=== PATIENT | male | born 1960 | race Two or more races ===

== ENCOUNTER 2016-06-04 12:59 | Inpatient (IN) | payer OTHER ==
[2016-06-04 15:02] VITALS: BMI 23.7
--- NOTE | 2016-06-04 16:26 | HP ---
COWS - Scale Resting Pulse: 2= [place] 101-120 Sweatin= Chills/Flushing Restless Observation: 1= Difficult to Sit Still Pupil Size: 0= Normal to Room Light Bone or Joint Aches: 1= Mild Discomfort Runny Nose/ Eye Tearin= Runny Nose/Eyes GI Upset > 30mins: 0= None Tremor Observation: 2= Slight Tremor Visible Yawning Observation: 1= 1-2x During Session Anxiety or Irritability: 1=Feels Anxious/Irritable Goose Flesh Skin: 0=Smooth Skin COWS Score: 11 CIWA Score - CIWA Score Nausea/Vomitin-No Nausea/No Vomiting Muscle Tremors: 3 Anxiety: 3 Agitation: 3 Paroxysmal Sweats: 2 Orientation: 3-Disoriented Date>2 days Tacttile Disturbances: 1-Very Mild Itch/Numbness Auditory Disturbances: 0-None Visual Disturbances: 0-None Headache: 0-None Present CIWA-Ar Total Score: 15 Admission ROS [facility] - HPI Chief Complaint: WITHDRAWAL SX.,PT. IS DROWSY BECAUSE HE TOOK TWO SEROQUEL THIS MORNING. Allergies/Adverse Reactions: Allergies Allergy/AdvReac Type Severity Reaction Status Date / Time fish derived [Fish derived] Allergy Mild Vomiting Verified 08/19/11 17:24 History of Present Illness: PT. WITH A LONG HX. OF HEROIN & ALCOHOL DEPENDENCE IS ADMITTED FOR DETOX. PT. HAS BEEN IN PREVIOUS DETOX, DENIES SIGNIFICANT SOBRIETY & DRUG FREE. Exam Limitations: Other (DROWSY) - Ebola screening Have you traveled outside of the country in the last 21 days: No Have you had contact with anyone from an Ebola affected area: No Have you been sick,other than usual withdrawal symptoms: No Do you have a fever: No - Review of Systems Constitutional: Diaphoresis EENT: reports: Nose Congestion Respiratory: reports: No Symptoms reported Cardiac: reports: No Symptoms Reported GI: reports: No Symptoms Reported : reports: No Symptoms Reported Musculoskeletal: reports: Back Pain, Joint Pain Integumentary: reports: Sweating Neuro: reports: Tingling, Tremors Endocrine: reports: No Symptoms Reported Hematology: reports: No Symptoms Reported Psychiatric: reports: No Sypmtoms Reported Other Systems: Reviewed and Negative Patient History - Patient Medical History Hx Anemia: No Hx Asthma: No Hx Chronic Obstructive Pulmonary Disease (COPD): No Hx Cancer: No Hx Cardiac Disorders: No Hx Congestive Heart Failure: No Hx Hypertension: No Hx Hypercholesterolemia: No Hx Pacemaker: No HX Cerebrovascular Accident: No Hx Seizures: No Hx Dementia: No Hx Diabetes: Yes (? not currently on meds. we'll do BGM) Hx Gastrointestinal Disorders: No Hx Liver Disease: No Hx Genitourinary Disorders: No Hx Sexually Transmitted Disorders: No Hx Renal Disease (ESRD): No Hx Thyroid Disease: No Hx Human Immunodeficiency Virus (HIV): No Hx Hepatitis C: No Hx Depression: Yes (SEROQUEL & DEPAKOTE) Hx Suicide Attempt: No (DENIES) Hx Bipolar Disorder: Yes Hx Schizophrenia: No - Patient Surgical History Past Surgical History: No Hx Neurologic Surgery: No Hx Cataract Extraction: No Hx Cardiac Surgery: No Hx Lung Surgery: No Hx Breast Surgery: No Hx Breast Biopsy: No Hx Abdominal Surgery: No Hx Appendectomy: No Hx Cholecystectomy: No Hx Genitourinary Surgery: No Hx Section: No Hx Orthopedic Surgery: No Anesthesia Reaction: No - PPD History Date: 02/20/16 Results: 0 mm PPD to be Administered?: No - Smoking Cessation Smoking history: Current every day smoker Have you smoked in the past 12 months: Yes Aproximately how many cigarettes per day: 10 Hx Chewing Tobacco Use: No Initiated information on smoking cessation: Yes 'Breaking Loose' booklet given: 06/04/16 - Substance & Tx. History Hx Alcohol Use: Yes Hx Substance Use: Yes Substance Use Type: Alcohol, Heroin Hx Substance Use Treatment: Yes (DETOX) - Substances Abused Alcohol Route: Oral Frequency: Daily Amount used: VODKA 1 PINT,BEER 1-2(6PACK) Age of first use: 14 Date of Last Use: 06/04/16 Heroin Route: Inhalation Frequency: Daily Amount used: 2-3 BAGS Age of first use: 38 Date of Last Use: 06/04/16 Family Disease History - Family Disease History Family History: Denies Admission Physical Exam BHS - Vital Signs Vital Signs: Vital Signs - 24 hr 06/04/16 14:59 Temperature 97 F L Pulse Rate 108 H Respiratory 16 Rate Blood Pressure 108/61 - Physical General Appearance: Yes: Irritable, Sweating, Anxious, Other (DROWSY) HEENTM: Yes: Nasal Congestion, Rhinorrhea Respiratory: Yes: Chest Non-Tender, Lungs Clear, Normal Breath Sounds Neck: Yes: Supple Breast: Yes: Breast Exam Deferred Cardiology: Yes: Regular Rhythm, Regular Rate, S1, S2 Abdominal: Yes: Normal Bowel Sounds, Non Tender, Soft Genitourinary: Yes: Within Normal Limits Back: Yes: Within Normal Limits Musculoskeletal: Yes: Within Normal Limits Extremities: Yes: Tremors Neurological: Yes: Fully Oriented, Alert Integumentary: Yes: Diaphoresis Lymphatic: Yes: Within Normal Limits - Diagnostic (1) Alcohol dependence with uncomplicated withdrawal Current Visit: Yes Status: Acute (2) Nicotine dependence Current Visit: Yes Status: Acute Qualifiers: Nicotine product type: cigarettes Substance use status: uncomplicated Qualified Code(s): F17.210 - Nicotine dependence, cigarettes, uncomplicated (3) Opioid dependence with withdrawal Current Visit: Yes Status: Acute Cleared for Admission [facility] - Detox or Rehab [facility] Level of Care: Medically Managed Detox Regimen/Protocol: Methadone/Librium [facility] Breath Alcohol Content Breath Alcohol Content: 0 Urine Drug Screen - Results Drug Screen Negative: No Urine Drug Screen Results: EUGENIA-Cocaine, OPI-Opiates, BZO-Benzodiazepines
[2016-06-04] MEDS ORDERED: MAGNESIUM HYDROX 2400MG/30ML ORAL SUSPENSION 30 ML CUP PO PRN (16:46)
[2016-06-04] MEDS ORDERED: ACETAMINOPHEN 325 MG TABLET (FP) PO PRN (16:46)
[2016-06-04] MEDS ORDERED: IBUPROFEN 400 MG TABLET (FP) PO PRN (16:46)
[2016-06-04] MEDS ORDERED: diphenhydrAMINE HCL 50 MG CAPSULE PO PRN (16:46)
[2016-06-04] MEDS ORDERED: chlordiazePOXIDE HCL 25 MG CAPSULE PO PRN (16:46)
[2016-06-04] MEDS ORDERED: LOPERAMIDE HCL 2 MG CAPSULE PO PRN (16:46)
[2016-06-04] MEDS ORDERED: MENTHOL/PHENOL 1 EACH UD MM PRN (16:46)
[2016-06-04] MEDS ORDERED: NICOTINE POLACRILEX 2 MG GUM BC PRN (16:46)
[2016-06-04] MEDS ORDERED: MAG HYDROX/AL HYDROX/SIMETH 30 ML UNIT-DOSE CUP PO PRN (16:46)
[2016-06-04] MEDS ORDERED: MAGNESIUM CITRATE 300 ML BOTTLE PO PRN (16:46)
[2016-06-04] MEDS: chlordiazePOXIDE HCL 25 MG CAPSULE PO SCH ×2 (19:25→22:31)
[2016-06-04] MEDS: NICOTINE 21 MG/24 HOURS TOPICAL PATCH TD SCH (19:25)
[2016-06-04] MEDS: THIAMINE HCL 100 MG TABLET (FP) PO SCH (22:29)
[2016-06-04] MEDS ORDERED: METHADONE HCL 10 MG TABLET (FOR DETOX USE ONLY) PO ONE (23:00)
[2016-06-04 23:07] LABS: URINE APPEARANCE CLEAR; URINE BILIRUBIN NEGATIVE (NEGATIVE); URINE BLOOD NEGATIVE (NEGATIVE); URINE COLOR LT. YELLOW; URINE GLUCOSE (UA) NEGATIVE (NEGATIVE); URINE KETONE NEGATIVE (NEGATIVE); URINE LEUK ESTERASE NEGATIVE (NEGATIVE); URINE NITRITE NEGATIVE (NEGATIVE); URINE PROTEIN NEGATIVE (NEGATIVE); URINE UROBILINOGEN 0.2 E.U/dl E.U./dl (0.2-1.0)
[2016-06-05] MEDS: chlordiazePOXIDE HCL 25 MG CAPSULE PO SCH ×4 (05:16→23:22)
[2016-06-05] MEDS: INSULIN (NOVOLOG) ASPART 100 UNITS/ML 10ML VIAL SQ SCH ×2 (07:49→17:08)
--- NOTE | 2016-06-05 08:20 | CONSULT ---
[facility] Psychiatric Consult - Data Date of interview: 06/05/16 Admission source: [facility] Identifying data: This is 55 years old male with unknown past psychiatric hospitalization history , history of Bipolar disorder, intoxicated with: Alcohol, Heroin, Cocaine and Nicotine Substance Abuse History: Smoking history: Current every day smoker. Have you smoked in the past 12 months: Yes. Aproximately how many cigarettes per day: 10. Hx Chewing Tobacco Use: No. Initiated information on smoking cessation: Yes. 'Breaking Loose' booklet given: 06/04/16. - Substance & Tx. History. Hx Alcohol Use: Yes. Hx Substance Use: Yes. Substance Use Type: Alcohol, Heroin. Hx Substance Use Treatment: Yes (DETOX). - Substances Abused. Alcohol. Route: Oral. Frequency: Daily. Amount used: VODKA 1 PINT,BEER 1-2(6PACK). Age of first use: 14. Date of Last Use: 06/04/16. Heroin. Route: Inhalation. Frequency: Daily. Amount used: 2-3 BAGS. Age of first use: 38. Date of Last Use: 06/04/16 Medical History: Denies significant medical issues Psychiatric History: Patient reprots history of Bipolar diosrder, reports unclear past psychiatric hiosputalization history, agrees to restart Depakote 500mg po bid, refueing to restart Seroquel 50mg po qhs, not cooperative dusing evaluation Physical/Sexual Abuse/Trauma History: Denies Additional Comment: Depakote 500mg po bid Mental Status Exam - Mental Status Exam Alert and Oriented to: Person Cognitive Function: Fair Patient Appearance: Unkempt Mood: Anxious Affect: Labile Patient Behavior: Sedated, Impulsive Speech Pattern: Pressured Voice Loudness: Mildly Loud Thought Process: Circumstantial Thought Disorder: Grandiose Hallucinations: Denies Suicidal Ideation: Denies Homicidal Ideation: Denies Insight/Judgement: Impaired Sleep: Difficulty falling asleep Appetite: Weight loss Muscle strength/Tone: Mild Hypertonicity Gait/Station: Shuffling Additional Comments: Depakote 500mg po bid Psychiatric Findings - Problem List ([place] 1, 2,3) (1) Alcohol dependence with uncomplicated withdrawal Current Visit: Yes Status: Acute (2) Nicotine dependence Current Visit: Yes Status: Acute Qualifiers: Nicotine product type: cigarettes Substance use status: uncomplicated Qualified Code(s): F17.210 - Nicotine dependence, cigarettes, uncomplicated (3) Opioid dependence with withdrawal Current Visit: Yes Status: Acute (4) Bipolar disorder Current Visit: No Status: Acute (5) Cocaine dependence, uncomplicated Current Visit: No Status: Acute (6) Substance induced mood disorder Current Visit: No Status: Acute - Initial Treatment Plan Initial Treatment Plan: Depakote 500mg po bid
--- NOTE | 2016-06-05 09:42 | PN ---
S CIWA - CIWA Score Nausea/Vomitin Muscle Tremors: 3 Anxiety: 3 Agitation: 2 Paroxysmal Sweats: 3 Orientation: 0-Oriented Tacttile Disturbances: 1-Very Mild Itch/Numbness Auditory Disturbances: 0-None Visual Disturbances: 0-None Headache: 0-None Present CIWA-Ar Total Score: 14 S COWS - Scale Resting Pulse: 1= [place] 81-100 Restless Observation: 1= Difficult to Sit Still Pupil Size: 1= Pupils >than Normal Bone or Joint Aches: 1= Mild Discomfort Runny Nose/ Eye Tearin= Nasal Congestion GI Upset > 30mins: 1= Stomach Cramp Tremor Observation of Outstretched Hands: 1= Tremor [place], Not Seen Yawning Observation: 0= None Anxiety or Irritability: 2=Irritable/Anxious Goose Flesh Skin: 0=Smooth Skin [facility] Progress Note (SOAP) Subjective: interrupted sleep, sweats, shakes Objective: 06/05/16 09:41 Vital Signs Temperature 97.9 F 06/05/16 05:48 Pulse Rate 68 06/05/16 05:48 Respiratory Rate 18 06/05/16 05:48 Blood Pressure 106/65 06/05/16 05:48 O2 Sat by Pulse Oximetry (%) Laboratory Tests 06/04/16 06/05/16 22:25 05:16 POC Glucometer 109 Urine Color Lt. yellow Urine Appearance Clear Urine pH 6.0 Ur Specific [place] 1.010 Urine Protein Negative Urine Glucose (UA) Negative Urine Ketones Negative Urine Blood Negative Urine Nitrite Negative Urine Bilirubin Negative Urine Urobilinogen 0.2 e.u/dl Ur Leukocyte Esterase Negative pending labs pt aox3 very irritable Assessment: 06/05/16 09:41 withdrawl sx's 06/05/16 14:37 Plan: cont. detox increase fluids ensure bid
[2016-06-05] MEDS ORDERED: METHADONE HCL 10 MG TABLET (FOR DETOX USE ONLY) PO SCH (10:00)
[2016-06-05 10:17] LABS: MCH 33.5 pg (25.7-33.7); MCHC 33.6 g/dl (32.0-35.9); MEAN PLT VOLUME 8.1 fl (7.5-11.1); PLATELET COUNT 250 K/MM3 (134-434); RDW 13.3 % (11.9-15.9); WHITE BLOOD COUNT 8.8 K/mm3 (4.0-10.0)
[2016-06-05 10:45] LABS: ALBUMIN 3.3 g/dl (3.4-5.0); ALK PHOS 61 U/L (45-117); ANION GAP 7 (8-16); BILIRUBIN,TOTAL 0.3 mg/dL (0.2-1.0); CALCIUM 9.1 mg/dL (8.5-10.1); CO2 28 mmol/L (21-32); CREATININE 0.9 mg/dL (0.7-1.3); GLUCOSE,RANDOM 120 mg/dL (74-106); SGOT/AST 44 U/L (15-37); SGPT/ALT 50 U/L (12-78)
[2016-06-05] MEDS: PRENATAL VITAMINS W/ FOLIC ACID TABLET (FP) PO SCH (10:53)
[2016-06-05] MEDS: guaiFENesin/D-METHORPHAN HB 10 ML UNIT-DOSE CUPS PO PRN (10:54)
[2016-06-05] MEDS: P-EPHED 60MG/TRIPROLIDI 2.5MG TABLET PO PRN (10:54)
[2016-06-05] MEDS: DIVALPROEX SODIUM 500 MG TABLET E.C. PO SCH ×2 (10:54→22:55)
[2016-06-05] MEDS: NICOTINE 21 MG/24 HOURS TOPICAL PATCH TD SCH (11:26)
--- NOTE | 2016-06-05 16:33 | EKG ---
Test Reason : Blood Pressure : / mmHG Vent. Rate : 083 BPM Atrial Rate : 083 BPM P-R Int : 144 ms QRS Dur : 112 ms QT Int : 366 ms P-R-T Axes : 069 074 071 degrees QTc Int : 430 ms POOR DATA QUALITY, INTERPRETATION MAY BE ADVERSELY AFFECTED NORMAL SINUS RHYTHM NONSPECIFIC ST ABNORMALITY ABNORMAL ECG NO PREVIOUS ECGS AVAILABLE Confirmed by ROMAN FLORENCE MD ([id number]) on 06/05/2016 4:33:08 PM Referred By: Confirmed By:ROMAN FLORENCE MD
[2016-06-05] MEDS: THIAMINE HCL 100 MG TABLET (FP) PO SCH (22:55)
[2016-06-06] MEDS: chlordiazePOXIDE HCL 25 MG CAPSULE PO SCH ×2 (05:19→10:10)
[2016-06-06] MEDS: INSULIN (NOVOLOG) ASPART 100 UNITS/ML 10ML VIAL SQ SCH ×2 (07:33→17:20)
--- NOTE | 2016-06-06 09:18 | PN ---
S CIWA - CIWA Score Nausea/Vomitin Muscle Tremors: 3 Anxiety: 3 Agitation: 2 Paroxysmal Sweats: 1-Minimal Palms Moist Orientation: 0-Oriented Tacttile Disturbances: 1-Very Mild Itch/Numbness Auditory Disturbances: 1-Very Mild Visual Disturbances: 1-Very Mild Sensitivity Headache: 2-Mild CIWA-Ar Total Score: 17 BHS COWS - Scale Resting Pulse: 0= DC 80 or Below Sweatin= Chills/Flushing Restless Observation: 3= Extraneous Movement Pupil Size: 1= Pupils >than Normal Bone or Joint Aches: 2= Severe Diffuse Aches Runny Nose/ Eye Tearin= Runny Nose/Eyes GI Upset > 30mins: 2= Nausea/Diarrhea Tremor Observation of Outstretched Hands: 2= Slight Tremor Visible Yawning Observation: 2= >3x During Session Anxiety or Irritability: 2=Irritable/Anxious Goose Flesh Skin: 0=Smooth Skin COWS Score: 17 S Progress Note (SOAP) Subjective: ALERT,IRRITABLE,ANXIOUS,INTERRUPTED SLEEP,TREMOR,PAIN IN THE BODY AND BACK Objective: 06/06/16 09:15 Vital Signs Temperature 98.1 F 06/06/16 06:16 Pulse Rate 63 06/06/16 06:16 Respiratory Rate 14 06/06/16 06:16 Blood Pressure 98/64 06/06/16 06:16 O2 Sat by Pulse Oximetry (%) Laboratory Last Values WBC 8.8 K/mm3 (4.0-10.0) 06/05/16 06:30 RBC 4.14 M/mm3 (4.00-5.60) 06/05/16 06:30 Hgb 13.9 GM/dL (11.7-16.9) 06/05/16 06:30 Hct 41.4 % (35.4-49) 06/05/16 06:30 MCV 100.0 fl (80-96) H 06/05/16 06:30 MCHC 33.6 g/dl (32.0-35.9) 06/05/16 06:30 RDW 13.3 % (11.9-15.9) 06/05/16 06:30 Plt Count 250 K/MM3 (134-434) 06/05/16 06:30 MPV 8.1 fl (7.5-11.1) 06/05/16 06:30 Sodium 143 mmol/L (136-145) 06/05/16 06:30 Potassium 3.6 mmol/L (3.5-5.1) 06/05/16 06:30 Chloride 108 mmol/L (98-107) H 06/05/16 06:30 Carbon Dioxide 28 mmol/L (21-32) 06/05/16 06:30 Anion Gap 7 (8-16) L 06/05/16 06:30 BUN 18 mg/dL (7-18) D 06/05/16 06:30 Creatinine 0.9 mg/dL (0.7-1.3) 06/05/16 06:30 Creat Clearance w eGFR > 60 (>60) 06/05/16 06:30 POC Glucometer 109 UNITS (()) 06/05/16 05:16 Random Glucose 120 mg/dL (74-106) H 06/05/16 06:30 Calcium 9.1 mg/dL (8.5-10.1) 06/05/16 06:30 Total Bilirubin 0.3 mg/dL (0.2-1.0) D 06/05/16 06:30 AST 44 U/L (15-37) H 06/05/16 06:30 ALT 50 U/L (12-78) D 06/05/16 06:30 Alkaline Phosphatase 61 U/L (45-117) 06/05/16 06:30 Total Protein 7.0 g/dl (6.4-8.2) 06/05/16 06:30 Albumin 3.3 g/dl (3.4-5.0) L 06/05/16 06:30 Urine Color Lt. yellow 06/04/16 22:25 Urine Appearance Clear 06/04/16 22:25 Urine pH 6.0 (5.0-8.0) 06/04/16 22:25 Ur Specific [place] 1.010 (1.001-1.035) 06/04/16 22:25 Urine Protein Negative (NEGATIVE) 06/04/16 22:25 Urine Glucose (UA) Negative (NEGATIVE) 06/04/16 22:25 Urine Ketones Negative (NEGATIVE) 06/04/16 22:25 Urine Blood Negative (NEGATIVE) 06/04/16 22:25 Urine Nitrite Negative (NEGATIVE) 01/11/17 22:25 Urine Bilirubin Negative (NEGATIVE) 06/04/16 22:25 Urine Urobilinogen 0.2 e.u/dl E.U./dl (0.2-1.0) 06/04/16 22:25 Ur Leukocyte Esterase Negative (NEGATIVE) 06/04/16 22:25 RPR Titer Nonreactive (NONREACTIVE) 06/05/16 06:30 Assessment: 06/06/16 09:17 WITHDRAWAL SYMPTOM Plan: CONTINUE DETOX,BGM IS 120,BGM MONITORING,REPEAT CMP IN AM
[2016-06-06] MEDS: DIVALPROEX SODIUM 500 MG TABLET E.C. PO SCH ×2 (10:10→22:13)
[2016-06-06] MEDS: PRENATAL VITAMINS W/ FOLIC ACID TABLET (FP) PO SCH (10:10)
[2016-06-06] MEDS: METHADONE HCL 5 MG TABLET (FOR DETOX USE ONLY) PO SCH (10:10)
[2016-06-06] MEDS: P-EPHED 60MG/TRIPROLIDI 2.5MG TABLET PO PRN (10:11)
[2016-06-06] MEDS: guaiFENesin/D-METHORPHAN HB 10 ML UNIT-DOSE CUPS PO PRN (10:11)
[2016-06-06] MEDS: NICOTINE 21 MG/24 HOURS TOPICAL PATCH TD SCH (10:11)
[2016-06-06] MEDS: chlordiazePOXIDE 5 MG CAPSULE PO SCH ×2 (17:36→22:13)
[2016-06-06] MEDS: THIAMINE HCL 100 MG TABLET (FP) PO SCH (22:13)
[2016-06-07] MEDS: chlordiazePOXIDE 5 MG CAPSULE PO SCH ×2 (06:51→11:28)
[2016-06-07] MEDS: INSULIN (NOVOLOG) ASPART 100 UNITS/ML 10ML VIAL SQ SCH ×2 (07:46→16:43)
[2016-06-07] MEDS: PRENATAL VITAMINS W/ FOLIC ACID TABLET (FP) PO SCH (11:27)
[2016-06-07] MEDS: METHADONE HCL 5 MG TABLET (FOR DETOX USE ONLY) PO SCH (11:28)
[2016-06-07] MEDS: DIVALPROEX SODIUM 500 MG TABLET E.C. PO SCH ×2 (11:28→22:28)
[2016-06-07] MEDS: NICOTINE 21 MG/24 HOURS TOPICAL PATCH TD SCH (11:31)
--- NOTE | 2016-06-07 12:16 | PN ---
S Progress Note (SOAP) Subjective: ALERT,IRRITABLE,ANXIOUS,INTERRUPTED SLEEP,PAIN IN THE BODY Objective: 06/07/16 12:15 Vital Signs Temperature 97.3 F L 06/07/16 10:00 Pulse Rate 66 06/07/16 10:00 Respiratory Rate 16 06/07/16 10:00 Blood Pressure 131/77 06/07/16 10:00 O2 Sat by Pulse Oximetry (%) 06/07/16 12:15 Assessment: 06/07/16 12:15 WITHDRAWAL SYMPTOM Plan: CONTINUE DETOX,PATIENT REFUSED REPEAT CMP AND BGM,INITIAL GLUCOSE IS 120
[2016-06-07] MEDS: chlordiazePOXIDE HCL 10 MG CAPSULE PO SCH ×2 (18:30→22:29)
[2016-06-07] MEDS: THIAMINE HCL 100 MG TABLET (FP) PO SCH (22:28)
[2016-06-08] MEDS: INSULIN (NOVOLOG) ASPART 100 UNITS/ML 10ML VIAL SQ SCH (05:59)
[2016-06-08] MEDS: chlordiazePOXIDE HCL 10 MG CAPSULE PO SCH (05:59)
[2016-06-08] MEDS ORDERED: METHADONE HCL 10 MG TABLET (FOR DETOX USE ONLY) PO SCH (10:00)
--- NOTE | 2016-06-08 12:09 | PN ---
S Progress Note (SOAP) Subjective: ALERT,IRRITABLE,ANXIOUS,INTERRUPTED SLEEP Objective: 06/08/16 12:08 Vital Signs Temperature 97.3 F L 06/08/16 10:00 Pulse Rate 77 06/08/16 10:00 Respiratory Rate 18 06/08/16 10:00 Blood Pressure 84/62 06/08/16 10:00 O2 Sat by Pulse Oximetry (%) Assessment: 06/08/16 12:08 WITHDRAWAL SYMPTOM Plan: CONTINUE DETOX
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
--- NOTE | 2016-06-08 13:35 | PN ---
[facility] Progress Note Note: PATIENT WOULD LIKE TO BE DISCHARGED,STABLE FOR DISCHARGE TODAY,FOLLOW UP WITH AFTER CARE PROGRAM ARRANGEMENT
--- NOTE | 2016-06-08 13:38 | DS ---
[facility] Detox Discharge Summary Admission Date: 06/04/16 Discharge Date: 06/08/16 - History Present History: Alcohol Dependence, Opioid Dependence Additional Comments: FOLLOW UP WITH AFTER PROGRAM ARRANGEMENT Pertinent Past History: BIPOLAR DISORDER - Physical Exam Results Vital Signs: Vital Signs Temperature 97.3 F L 06/08/16 10:00 Pulse Rate 77 06/08/16 10:00 Respiratory Rate 18 06/08/16 10:00 Blood Pressure 84/62 06/08/16 10:00 O2 Sat by Pulse Oximetry (%) Pertinent Admission Physical Exam Findings: WITHDRAWAL SYMPTOM - Treatment Hospital Course: Detox Protocol Followed, Detoxed Safely, Responded well, Discharged Condition Good Patient has Accepted a Rehab Referral to: [facility]CL[facility]ED - Medication Discharge Medications: Ambulatory Orders Divalproex [Depakote -] 500 mg PO BID 06/04/16 Quetiapine Fumarate [Seroquel -] 50 mg PO HS 06/04/16 Divalproex [Depakote -] 500 mg PO BID #60 tablet.ec 06/05/16 - AMA Did Patient Leave Against Medical Advice: No
[2016-06-08 14:29] VITALS: BP 115/57; PULSE 69; TEMP 97.7
[2016-06-09] MEDS ORDERED: METHADONE HCL 5 MG TABLET (FOR DETOX USE ONLY) PO SCH (06:00)
== END 2016-06-08 13:50 | disposition home or self-care (01) | DRG 773 ==
LOC: YASAS 12:59 → Y6N 18:12
PROVIDERS: ADMIT Internal Medicine Addiction Medicine; ATTEND Internal Medicine Addiction Medicine
PROC: HZ2ZZZZ Detoxification Services for Substance Abuse Treatment (ICD-10-PCS; principal; 2016-06-04)
DX: F11.23 Opioid dependence with withdrawal (principal); F10.230 Alcohol dependence with withdrawal, uncomplicated; F14.20 Cocaine dependence, uncomplicated; F17.210 Nicotine dependence, cigarettes, uncomplicated; F31.9 Bipolar disorder, unspecified; F19.24 Other psychoactive substance dependence with psychoactive substance-induced mood disorder; E11.9 Type 2 diabetes mellitus without complications
CPT/HCPCS: 36415; 80053; 80164; 81003; 85027; 86593; 93005; 93010

== ENCOUNTER 2017-10-28 09:52 | Inpatient (IN) | payer OTHER ==
[2017-10-28 11:10] VITALS: BMI 23.4
--- NOTE | 2017-10-28 14:23 | HP ---
Admission ROS [facility] - [facility] Chief Complaint: i need help to stop using heroin and alcohol Allergies/Adverse Reactions: Allergies Allergy/AdvReac Type Severity Reaction Status Date / Time No Known Drug Allergies Allergy Verified 10/28/17 12:23 fish derived [Fish derived] AdvReac Mild Vomiting Verified 10/28/17 12:23 History of Present Illness: this 57 years old male with heroin and alcohol dependence,seeking rehab,last treatment [facility] discharged on 10/26/17 hepatitis c treated nicotine dependence anxiety,depression,insomnia longest period of sobriety 5 years Exam Limitations: No Limitations - Ebola screening Have you traveled outside of the country in the last 21 days: No Have you had contact with anyone from an Ebola affected area: No Have you been sick,other than usual withdrawal symptoms: No Do you have a fever: No - Review of Systems Constitutional: No Symptoms Reported EENT: reports: No Symptoms Reported Respiratory: reports: No Symptoms reported Cardiac: reports: No Symptoms Reported GI: reports: No Symptoms Reported : reports: No Symptoms Reported Musculoskeletal: reports: No Symptoms Reported Integumentary: reports: No Symptoms Reported Neuro: reports: No Symptoms reported Endocrine: reports: No Symptoms Reported Hematology: reports: No Symptoms Reported Psychiatric: reports: No Sypmtoms Reported, Judgement Intact, Mood/Affect Appropiate, Orientated x3 (insomnia), Anxious, Depressed Patient History - Patient Medical History Hx Anemia: No Hx Asthma: No Hx Chronic Obstructive Pulmonary Disease (COPD): No Hx Cancer: No Hx Cardiac Disorders: No Hx Congestive Heart Failure: No Hx Hypertension: No Hx Hypercholesterolemia: No Hx Pacemaker: No HX Cerebrovascular Accident: No Hx Seizures: No Hx Dementia: No Hx Diabetes: No Hx Gastrointestinal Disorders: No Hx Liver Disease: No Hx Genitourinary Disorders: No Hx Sexually Transmitted Disorders: No Hx Renal Disease (ESRD): No Hx Thyroid Disease: No Hx Human Immunodeficiency Virus (HIV): No (last 2017 negative) Hx Hepatitis C: Yes (treated) Hx Depression: Yes (SEROQUEL & DEPAKOTE) Hx Suicide Attempt: No (DENIES) Hx Bipolar Disorder: Yes Hx Schizophrenia: No Other Medical History: no sucidal,no homicidal - Patient Surgical History Past Surgical History: No Hx Neurologic Surgery: No Hx Cataract Extraction: No Hx Cardiac Surgery: No Hx Lung Surgery: No Hx Breast Surgery: No Hx Breast Biopsy: No Hx Abdominal Surgery: No Hx Appendectomy: No Hx Cholecystectomy: No Hx Genitourinary Surgery: No Hx Section: No Hx Orthopedic Surgery: No Anesthesia Reaction: No - PPD History Previous Implant?: Yes Documented Results: Negative w/o proof Implanted On Prior [facility] Admission?: Yes Date: 02/20/16 Results: 0 mm PPD to be Administered?: Yes - Smoking Cessation Smoking history: Current every day smoker Have you smoked in the past 12 months: Yes Aproximately how many cigarettes per day: 10 Hx Chewing Tobacco Use: No Initiated information on smoking cessation: Yes 'Breaking Loose' booklet given: 10/28/17 - Substance & Tx. History Hx Alcohol Use: Yes Hx Substance Use: Yes Substance Use Type: Alcohol, Cocaine, Heroin Hx Substance [facility] - Substances Abused Heroin Route: Inhalation Frequency: Daily Amount used: 1 bag Age of first use: 50 Date of Last Use: 10/27/17 Alcohol Route: Oral Frequency: 3-6 times per week Amount used: 3-4 beers Age of first use: 14 Date of Last Use: 10/28/17 Cocaine Route: Inhalation Frequency: 1-2 times per week Amount used: $20 Age of first use: 24 Date of Last Use: 10/27/17 Family Disease History - Family Disease History Family History: Denies Admission Physical Exam S - Vital Signs Vital Signs: Vital Signs - 24 hr 10/28/17 11:08 Temperature 97.8 F Pulse Rate 74 Respiratory 18 Rate Blood Pressure 130/79 - Physical General Appearance: Yes: Within Normal Limits HEENTM: Yes: Normal ENT Inspection, Normocephalic, [place] Respiratory: Yes: Lungs Clear, Normal Breath Sounds, No Respiratory Distress Neck: Yes: Within Normal Limits Breast: Yes: Within Normal Limits Cardiology: Yes: Within Normal Limits, Regular Rhythm, Regular Rate, S1, S2 Abdominal: Yes: Within Normal Limits, Normal Bowel Sounds, Non Tender, Soft Genitourinary: Yes: Within Normal Limits Back: Yes: Within Normal Limits Musculoskeletal: Yes: Within Normal Limits, Muscle Pain Extremities: Yes: Within Normal Limits Neurological: Yes: volunteer recruiter II-XII NML intact, Fully Oriented, Alert, Motor Strength 5/5 Integumentary: Yes: Within Normal Limits Lymphatic: Yes: Within Normal Limits - Diagnostic (1) Opioid dependence Current Visit: Yes Status: Acute (2) Cocaine dependence Current Visit: Yes Status: Acute (3) Cocaine dependence, uncomplicated Current Visit: No Status: Acute (4) Alcohol dependence Current Visit: Yes Status: Acute (5) Nicotine dependence Current Visit: Yes Status: Acute (6) Nicotine dependence Current Visit: No Status: Acute Qualifiers: Nicotine product type: cigarettes Substance use status: uncomplicated Qualified Code(s): F17.210 - Nicotine dependence, cigarettes, uncomplicated (7) Hepatitis C Current Visit: Yes Status: Acute (8) Bipolar disorder Current Visit: No Status: Acute Cleared for Admission [facility] - Detox or Rehab Claeared for Rehab Admission: Yes [facility] Breath Alcohol Content Breath Alcohol Content: 0 Urine Drug Screen - Results Drug Screen Negative: No Urine Drug Screen Results: EUGENIA-Cocaine, OPI-Opiates, BZO-Benzodiazepines, MTD- Methadone Inpatient Rehab Admission - Initial Determination Are CD services needed?: Yes Free of communicable disease: Yes Not in need of hospitalization: Yes - Rehab Admission Criteria Previous failed treatment: Yes Poor recovery environment: Yes Comorbidities: Yes Lacks judgement: No Patient is meeting Inpatient Rehab admission criteria:: Yes
[2017-10-28] MEDS ORDERED: MENTHOL/PHENOL 1 EACH UD MM PRN (14:38)
[2017-10-28] MEDS ORDERED: MAGNESIUM CITRATE 300 ML BOTTLE PO PRN (14:38)
[2017-10-28] MEDS ORDERED: MAGNESIUM HYDROX 2400MG/30ML ORAL SUSPENSION 30 ML CUP PO PRN (14:38)
[2017-10-28] MEDS ORDERED: guaiFENesin/D-METHORPHAN HB 10 ML UNIT-DOSE CUPS PO PRN (14:38)
[2017-10-28] MEDS ORDERED: LOPERAMIDE HCL 2 MG CAPSULE PO PRN (14:38)
[2017-10-28] MEDS ORDERED: IBUPROFEN 400 MG TABLET (FP) PO PRN (14:38)
[2017-10-28] MEDS ORDERED: MAG HYDROX/AL HYDROX/SIMETH 30 ML UNIT-DOSE CUP PO PRN (14:38)
[2017-10-28] MEDS ORDERED: ACETAMINOPHEN 325 MG TABLET (FP) PO PRN (14:38)
[2017-10-28] MEDS ORDERED: P-EPHED 60MG/TRIPROLIDI 2.5MG TABLET PO PRN (14:38)
[2017-10-28] MEDS ORDERED: hydrOXYzine PAMOATE 50 MG CAPSULE (FP) PO PRN (14:47)
[2017-10-28] MEDS ORDERED: NICOTINE POLACRILEX 2 MG GUM BUC PRN (14:47)
[2017-10-28 17:12] LABS: ALK PHOS 81 U/L (45-117); ANION GAP 2 (8-16); BILIRUBIN,TOTAL 0.4 mg/dL (0.2-1.0); BLOOD UREA NITROGEN 9 mg/dL (7-18); CALCIUM 8.9 mg/dL (8.5-10.1); CHLORIDE 98 mmol/L (98-107); CO2 35 mmol/L (21-32); CREATININE 0.8 mg/dL (0.7-1.3); GLUCOSE,RANDOM 92 mg/dL (74-106); POTASSIUM 4.4 mmol/L (3.5-5.1); SGOT/AST 22 U/L (15-37); SGPT/ALT 25 U/L (12-78); SODIUM 135 mmol/L (136-145); TOT PROT 7.6 g/dl (6.4-8.2)
[2017-10-28 17:24] LABS: HEMOGLOBIN 14.6 GM/dL (11.7-16.9); MCH 32.3 pg (25.7-33.7); MEAN CELL VOLUME 95.1 fl (80-96); MEAN PLT VOLUME 8.3 fl (7.5-11.1); PLATELET COUNT 310 K/MM3 (134-434); RBC 4.53 M/mm3 (4.00-5.60); WHITE BLOOD COUNT 7.7 K/mm3 (4.0-10.0)
[2017-10-28] MEDS: NICOTINE 21 MG/24 HOURS TOPICAL PATCH TD SCH (19:36)
[2017-10-28] MEDS ORDERED: TUBERCULIN PPD 5 TU/0.1ML VIAL ID ONE (19:37)
[2017-10-28] MEDS: THIAMINE HCL 100 MG TABLET (FP) PO SCH (21:31)
[2017-10-28] MEDS ORDERED: MELATONIN 5 MG TABLETS PO PRN (22:00)
[2017-10-29 07:05] LABS: URINE APPEARANCE CLEAR; URINE BILIRUBIN NEGATIVE (<2.0 mg/dL); URINE BLOOD NEGATIVE (NEGATIVE); URINE COLOR LTYELLOW; URINE GLUCOSE (UA) NEGATIVE (NEGATIVE); URINE KETONE NEGATIVE (NEGATIVE); URINE LEUK ESTERASE NEGATIVE (NEGATIVE); URINE NITRITE NEGATIVE (NEGATIVE); URINE PROTEIN NEGATIVE (NEGATIVE); URINE UROBILINOGEN NEGATIVE mg/dL (0.2-1.0)
--- NOTE | 2017-10-29 10:37 | HP ---
Psychiatrist Admission - Data Date of interview: 10/29/17 Admission source: friend Identifying data: This is the second [facility] admission for this 57 years old single male, unemployed on SSI, homeless Medical History: Significant for history of treatment for hepatitis C. smoked 10 cigarettes daily Psychiatric History: Patient was very irritable and evasive during the interview. He reports that years ago welfare referred him for a psychiatric evaluation because he could not hold a job. Claims that he saw 4 psychiatrists and they all diagnosed him with Bipolar. Reports one previous psychiatric admission to [facility]. He could not provide details surrounding that admission in term of date, medication etc. Claims following discharge, he attended psychiatric OPD care for a while but has no recollection of the site. He told Dr Hernandez during an admission to this facility in January 2016 that he once [facility] [place]. Currently he denies receiving psychiatric OPD care or taking any psychotropic medication.. Told show card writer that Depakote is one of the mecication he remembers being on in the past. Denies previous suicidal attempt. At present, reports feeling irritable and sleeping poorly. Physical/Sexual Abuse/Trauma History: Denies Additional Comment: Reports history of 3 previous arrests including 2 felony convictions. denies parole.probation Vital Signs: Vital Signs - 24 hr 10/28/17 10/28/17 10/29/17 11:08 18:30 00:30 Temperature 97.8 F 98.8 F Pulse Rate 74 85 Respiratory 18 18 18 Rate Blood Pressure 130/79 123/75 10/29/17 10/29/17 03:30 07:20 Temperature 98.7 F Pulse Rate 65 Respiratory 18 18 Rate Blood Pressure 131/86 Allergies/Adverse Reactions: Allergies Allergy/AdvReac Type Severity Reaction Status Date / Time No Known Drug Allergies Allergy Verified 10/28/17 12:23 fish derived [Fish derived] AdvReac Mild Vomiting Verified 10/28/17 12:23 Date of last physical exam: 10/28/17 Concur with the findings of this exam: Yes - Substance Abuse/Tx History Hx Alcohol Use: Yes Hx Substance Use: Yes Substance Use Type: Alcohol (Started drinking alcohol at age 14, consumes 3-4x oz daily. Last drank on 10/28/17), Heroin (Started using heroin at age 50, consumes one bag daily. Last used on 10/27/17) Hx Substance Use Treatment: Yes (4 previous inpt detox &one inpt rehab @ [facility]) Mental Status Exam - Mental Status Exam Alert and Oriented to: Time, Place, Person Cognitive Function: Fair Patient Appearance: Well Groomed Mood: Irritable Speech Pattern: Clear Voice Loudness: Normal Thought Process: Intact, Goal Oriented Thought Disorder: Not Present Hallucinations: Denies Suicidal Ideation: Denies Homicidal Ideation: Denies Insight/Judgement: Fair Sleep: Poorly Appetite: Poor Muscle strength/Tone: Normal Gait/Station: Normal Psychiatric Findings - Problem List ([place] 1, 2,3) (1) Alcohol dependence Current Visit: Yes Status: Acute (2) Cocaine dependence Current Visit: Yes Status: Acute (3) Nicotine dependence Current Visit: Yes Status: Acute (4) Substance induced mood disorder Current Visit: Yes Status: Acute (5) Bipolar disorder Current Visit: Yes Status: Ruled-out (6) Substance-induced sleep disorder Current Visit: Yes Status: Acute (7) Hepatitis C Current Visit: Yes Status: Resolved - Initial Treatment Plan Initial Treatment Plan: 1) Start Belsomra 10 mg po HS prn for insomnia. 2) Monitor progress
[2017-10-29] MEDS: PRENATAL VITAMINS W/ FOLIC ACID TABLET (FP) PO SCH (11:07)
[2017-10-29] MEDS: NICOTINE 21 MG/24 HOURS TOPICAL PATCH TD SCH (11:07)
--- NOTE | 2017-10-29 11:42 | EKG ---
Test Reason : Blood Pressure : / mmHG Vent. Rate : 064 BPM Atrial Rate : 064 BPM P-R Int : 140 ms QRS Dur : 086 ms QT Int : 426 ms P-R-T Axes : 076 077 063 degrees QTc Int : 439 ms NORMAL SINUS RHYTHM NORMAL ECG WHEN COMPARED WITH ECG OF 04-JUN-2016 18:54, NO SIGNIFICANT CHANGE WAS FOUND Confirmed by ROMAN FLORENCE MD ([id number]) on 10/29/2017 11:42:30 AM Referred By: Confirmed By:ROMAN FLORENCE MD
--- NOTE | 2017-10-29 13:13 | PN ---
[facility] Progress Note Note: Patient c/o of not feeling and mild withdrawal symptoms, body aches and chills. Patient requested to stay in bed and rest. He reports he feels this way because he ledthis detox at [facility] two days prior completion. Vital Signs Temperature 98.7 F 10/29/17 07:20 Pulse Rate 65 10/29/17 07:20 Respiratory Rate 18 10/29/17 07:20 Blood Pressure 131/86 10/29/17 07:20 O2 Sat by Pulse Oximetry (%) Laboratory Last Values WBC 7.7 K/mm3 (4.0-10.0) 10/28/17 15:30 RBC 4.53 M/mm3 (4.00-5.60) 10/28/17 15:30 Hgb 14.6 GM/dL (11.7-16.9) 10/28/17 15:30 Hct 43.0 % (35.4-49) 10/28/17 15:30 MCV 95.1 fl (80-96) 10/28/17 15:30 MCH 32.3 pg (25.7-33.7) 10/28/17 15:30 MCHC 34.0 g/dl (32.0-35.9) 10/28/17 15:30 RDW 13.0 % (11.9-15.9) 10/28/17 15:30 Plt Count 310 K/MM3 (134-434) D 10/28/17 15:30 MPV 8.3 fl (7.5-11.1) 10/28/17 15:30 Sodium 135 mmol/L (136-145) L 10/28/17 15:30 Potassium 4.4 mmol/L (3.5-5.1) D 10/28/17 15:30 Chloride 98 mmol/L (98-107) 10/28/17 15:30 Carbon Dioxide 35 mmol/L (21-32) H D 10/28/17 15:30 Anion Gap 2 (8-16) L 10/28/17 15:30 BUN 9 mg/dL (7-18) D 10/28/17 15:30 Creatinine 0.8 mg/dL (0.7-1.3) 10/28/17 15:30 Creat Clearance w eGFR > 60 (>60) 06/06/18 15:30 Random Glucose 92 mg/dL (74-106) D 10/28/17 15:30 Calcium 8.9 mg/dL (8.5-10.1) 10/28/17 15:30 Total Bilirubin 0.4 mg/dL (0.2-1.0) D 10/28/17 15:30 AST 22 U/L (15-37) D 10/28/17 15:30 ALT 25 U/L (12-78) D 10/28/17 15:30 Alkaline Phosphatase 81 U/L (45-117) D 10/28/17 15:30 Total Protein 7.6 g/dl (6.4-8.2) 10/28/17 15:30 Albumin 4.0 g/dl (3.4-5.0) D 10/28/17 15:30 Urine Color Ltyellow 10/28/17 22:00 Urine Appearance Clear 10/28/17 22:00 Urine pH 6.0 (5.0-8.0) 10/28/17 22:00 Ur Specific [place] 1.005 (1.001-1.035) 10/28/17 22:00 Urine Protein Negative (NEGATIVE) 10/28/17 22:00 Urine Glucose (UA) Negative (NEGATIVE) 10/28/17 22:00 Urine Ketones Negative (NEGATIVE) 10/28/17 22:00 Urine Blood Negative (NEGATIVE) 10/28/17 22:00 Urine Nitrite Negative (NEGATIVE) 10/28/17 22:00 Urine Bilirubin Negative (<2.0 mg/dL) 10/28/17 22:00 Urine Urobilinogen Negative mg/dL (0.2-1.0) 10/28/17 22:00 Ur Leukocyte Esterase Negative (NEGATIVE) 10/28/17 22:00 RPR Titer Nonreactive (NONREACTIVE) 10/28/17 15:30 A/P AOX3 no distress no adventitious breath sounds skin intact, full ROM v/s stable - withdrawal sx Plan: increase fluids rest monitor for worsening symptoms
[2017-10-29] MEDS: THIAMINE HCL 100 MG TABLET (FP) PO SCH (21:33)
[2017-10-29] MEDS ORDERED: SUVOREXANT 10 MG TABLET PO PRN (22:00)
[2017-10-30] MEDS ORDERED: ACETAMINOPHEN 325 MG TABLET (FP) PO PRN (07:04)
[2017-10-30 07:05] VITALS: BP 136/96; PULSE 62; TEMP 97.6
--- NOTE | 2017-10-30 10:30 | PN ---
S Progress Note Note: Psychiatric nurse practitioner note: Sweet Potato Disintegrator informed by RN that patient was irritable this morning. Pt. refusing to speak to staff, psychiatrist, and counselor. Pt. walked off unit and left AMA.
[2017-10-30] MEDS: PRENATAL VITAMINS W/ FOLIC ACID TABLET (FP) PO SCH (11:37)
[2017-10-30] MEDS: NICOTINE 21 MG/24 HOURS TOPICAL PATCH TD SCH (11:37)
== END 2017-10-30 10:30 | disposition left against medical advice (07) | DRG 770 ==
LOC: YASAS 09:52 → Y5N 15:03
PROVIDERS: ADMIT Psychiatry & Neurology Psychiatry; ATTEND Psychiatry & Neurology Psychiatry
PROC: HZ42ZZZ Group Counseling for Substance Abuse Treatment, Cognitive-Behavioral (ICD-10-PCS; principal; 2017-10-28)
DX: F11.23 Opioid dependence with withdrawal (principal); F10.230 Alcohol dependence with withdrawal, uncomplicated; F14.20 Cocaine dependence, uncomplicated; F17.210 Nicotine dependence, cigarettes, uncomplicated; F19.24 Other psychoactive substance dependence with psychoactive substance-induced mood disorder; F19.282 Other psychoactive substance dependence with psychoactive substance-induced sleep disorder; F31.9 Bipolar disorder, unspecified; B18.2 Chronic viral hepatitis C; Z91.013 Allergy to seafood
CPT/HCPCS: 36415; 80053; 81003; 85027; 86593; 87389; 93005; 93010

== ENCOUNTER 2017-12-11 10:33 | Inpatient (IN) | payer OTHER ==
[2017-12-11 11:05] VITALS: BMI 21.2
--- NOTE | 2017-12-11 12:01 | HP ---
Admission ROS [facility] Chief Complaint: i am here for rehab,heroin ,cocaine,alcohol use to be on suboxone 8mgs/2mgs sl tid ,last medicated in 10/09 hepatitis c treated at [facility] bipolar disorder nicotine dependence longest period of sobriety 5 years bipolar disorder Allergies/Adverse Reactions: Allergies Allergy/AdvReac Type Severity Reaction Status Date / Time No Known Drug Allergies Allergy Verified 10/28/17 12:23 History of Present Illness: this 57 years old male with heroin abused,cocaine and alcohol abused,for rehab as mentioned, recently detox at other facility type 2 dm on diet control - Ebola screening Have you traveled outside of the country in the last 21 days: No (N) Have you had contact with anyone from an Ebola affected area: No Have you been sick,other than usual withdrawal symptoms: No Do you have a fever: No - Review of Systems Constitutional: No Symptoms Reported EENT: reports: No Symptoms Reported Respiratory: reports: No Symptoms reported Cardiac: reports: No Symptoms Reported GI: reports: No Symptoms Reported : reports: No Symptoms Reported Musculoskeletal: reports: No Symptoms Reported Integumentary: reports: No Symptoms Reported Neuro: reports: No Symptoms reported Endocrine: reports: No Symptoms Reported Hematology: reports: No Symptoms Reported Psychiatric: reports: No Sypmtoms Reported Patient History - Patient Medical History Hx Anemia: No Hx Asthma: No Hx Chronic Obstructive Pulmonary Disease (COPD): No Hx Cancer: No Hx Cardiac Disorders: No Hx Congestive Heart Failure: No Hx Hypertension: No Hx Hypercholesterolemia: No Hx Pacemaker: No HX Cerebrovascular Accident: No Hx Seizures: No Hx Dementia: No Hx Diabetes: No Hx Gastrointestinal Disorders: No Hx Liver Disease: No Hx Genitourinary Disorders: No Hx Sexually Transmitted Disorders: No Hx Renal Disease (ESRD): No Hx Thyroid Disease: No Hx Human Immunodeficiency Virus (HIV): No (last 2017 negative) Hx Hepatitis C: Yes (treated) Hx Depression: No Hx Suicide Attempt: No Hx Bipolar Disorder: Yes Hx Schizophrenia: No Other Medical History: no suicidal,no homicidal - Patient Surgical History Past Surgical History: No Hx Neurologic Surgery: No Hx Cataract Extraction: No Hx Cardiac Surgery: No Hx Lung Surgery: No Hx Breast Surgery: No Hx Breast Biopsy: No Hx Abdominal Surgery: No Hx Appendectomy: No Hx Cholecystectomy: No Hx Genitourinary Surgery: No Hx Section: No Hx Orthopedic Surgery: No Anesthesia Reaction: No - PPD History Previous Implant?: Yes Documented Results: Negative w/proof Implanted On Prior R Admission?: Yes Date: 10/30/17 Results: 0 mm PPD to be Administered?: No - Smoking Cessation Smoking history: Current every day smoker Have you smoked in the past 12 months: Yes Aproximately how many cigarettes per day: 10 Hx Chewing Tobacco Use: No Initiated information on smoking cessation: Yes 'Breaking Loose' booklet given: 12/11/17 - Substance & Tx. History Hx Alcohol Use: Yes Hx Substance Use: Yes Substance Use Type: Alcohol, Cocaine, Heroin Hx Substance Use Treatment: Yes ([facility] 2 weeks ago) - Substances Abused Heroin Route: Inhalation Frequency: Daily Amount used: 2 bags Age of first use: 50 Date of Last Use: 12/09/17 Alcohol Route: Oral Frequency: Daily Amount used: 3-16oz Age of first use: 14 Date of Last Use: 12/08/17 Family Disease History - Family Disease History Family History: Denies Family Disease History: Diabetes: Mother (,psychiatric problem), Other: Father (alcohol,) Admission Physical Exam S - Vital Signs Vital Signs: Vital Signs - 24 hr 12/11/17 11:01 Temperature 99.2 F Pulse Rate 90 Respiratory 17 Rate Blood Pressure 145/76 - Physical General Appearance: Yes: Within Normal Limits HEENTM: Yes: Normal ENT Inspection, DOMEN[place], Pharynx Normal Respiratory: Yes: Lungs Clear, Normal Breath Sounds, No Respiratory Distress Neck: Yes: Within Normal Limits, Supple, Trachea in good position Breast: Yes: Within Normal Limits Cardiology: Yes: Within Normal Limits, Regular Rhythm, Regular Rate, S1, S2 Abdominal: Yes: Within Normal Limits, Normal Bowel Sounds, Non Tender, Flat, Soft Genitourinary: Yes: Within Normal Limits Back: Yes: Within Normal Limits Musculoskeletal: Yes: Within Normal Limits Extremities: Yes: Within Normal Limits Neurological: Yes: linter drier operator II-XII NML intact, Fully Oriented, Alert, Motor Strength 5/5 Integumentary: Yes: Within Normal Limits Lymphatic: Yes: Within Normal Limits - Diagnostic (1) Opioid dependence Current Visit: No Status: Acute (2) Alcohol dependence Current Visit: No Status: Acute (3) Cocaine dependence Current Visit: No Status: Acute (4) Nicotine dependence Current Visit: No Status: Acute Qualifiers: Nicotine product type: cigarettes Substance use status: uncomplicated Qualified Code(s): F17.210 - Nicotine dependence, cigarettes, uncomplicated (5) Hepatitis C Current Visit: No Status: Resolved (6) Bipolar disorder Current Visit: No Status: Ruled-out (7) Weight loss Current Visit: Yes Status: Acute Cleared for Admission [facility] - Detox or Rehab Claeared for Rehab Admission: Yes [facility] Breath Alcohol Content Breath Alcohol Content: 0 Urine Drug Screen - Results Drug Screen Negative: No Urine Drug Screen Results: EUGENIA-Cocaine, OPI-Opiates, BZO-Benzodiazepines, MTD- Methadone Inpatient Rehab Admission - Initial Determination Are CD services needed?: Yes Free of communicable disease: Yes Not in need of hospitalization: Yes - Rehab Admission Criteria Previous failed treatment: Yes Poor recovery environment: Yes Comorbidities: Yes Lacks judgement: No Patient is meeting Inpatient Rehab admission criteria:: Yes
[2017-12-11] MEDS ORDERED: MENTHOL/PHENOL 1 EACH UD MM PRN (12:08)
[2017-12-11] MEDS ORDERED: P-EPHED 60MG/TRIPROLIDI 2.5MG TABLET PO PRN (12:08)
[2017-12-11] MEDS ORDERED: LOPERAMIDE HCL 2 MG CAPSULE PO PRN (12:08)
[2017-12-11] MEDS ORDERED: guaiFENesin/D-METHORPHAN HB 10 ML UNIT-DOSE CUPS PO PRN (12:08)
[2017-12-11] MEDS ORDERED: ACETAMINOPHEN 325 MG TABLET (FP) PO PRN (12:08)
[2017-12-11] MEDS ORDERED: hydrOXYzine PAMOATE 25 MG CAPSULE (FP) PO PRN (12:08)
[2017-12-11] MEDS ORDERED: MAGNESIUM HYDROX 2400MG/30ML ORAL SUSPENSION 30 ML CUP PO PRN (12:08)
[2017-12-11] MEDS ORDERED: MAG HYDROX/AL HYDROX/SIMETH 30 ML UNIT-DOSE CUP PO PRN (12:08)
[2017-12-11] MEDS ORDERED: MAGNESIUM CITRATE 300 ML BOTTLE PO PRN (12:08)
[2017-12-11] MEDS ORDERED: CYCLOBENZAPRINE HCL 10 MG TABLET (FP) PO PRN (12:25)
[2017-12-11 15:02] LABS: HEMATOCRIT 37.6 % (35.4-49); HEMOGLOBIN 12.7 GM/dL (11.7-16.9); MCH 31.9 pg (25.7-33.7); MCHC 33.8 g/dl (32.0-35.9); MEAN CELL VOLUME 94.5 fl (80-96); MEAN PLT VOLUME 8.1 fl (7.5-11.1); PLATELET COUNT 302 K/MM3 (134-434); RBC 3.98 M/mm3 (4.00-5.60); RDW 13.3 % (11.9-15.9); WHITE BLOOD COUNT 6.6 K/mm3 (4.0-10.0)
[2017-12-11 15:10] LABS: ALBUMIN 3.5 g/dl (3.4-5.0); ANION GAP 4 (8-16); BLOOD UREA NITROGEN 17 mg/dL (7-18); CHLORIDE 106 mmol/L (98-107); CO2 30 mmol/L (21-32); GLUCOSE,RANDOM 119 mg/dL (74-106); POTASSIUM 4.5 mmol/L (3.5-5.1); SODIUM 140 mmol/L (136-145)
[2017-12-11 15:14] LABS: ALK PHOS 68 U/L (45-117); BILIRUBIN,TOTAL 0.3 mg/dL (0.2-1.0); CREATININE 0.8 mg/dL (0.7-1.3); SGOT/AST 22 U/L (15-37); SGPT/ALT 25 U/L (12-78); TOT PROT 6.9 g/dl (6.4-8.2)
[2017-12-11 15:23] VITALS: BP 124/76; PULSE 68; TEMP 98.2
[2017-12-11] MEDS: IBUPROFEN 400 MG TABLET (FP) PO PRN (16:54)
[2017-12-11] MEDS ORDERED: THIAMINE HCL 100 MG TABLET (FP) PO SCH (22:00)
[2017-12-11] MEDS ORDERED: MELATONIN 5 MG TABLETS PO PRN (22:00)
[2017-12-12] MEDS: NICOTINE 21 MG/24 HOURS TOPICAL PATCH TD SCH ×2 (01:37→10:28)
[2017-12-12] MEDS: IBUPROFEN 400 MG TABLET (FP) PO PRN (08:01)
[2017-12-12] MEDS ORDERED: PRENATAL VITAMINS W/ FOLIC ACID TABLET (FP) PO SCH (10:00)
[2017-12-12] MEDS ORDERED: IBUPROFEN 600 MG TABLET (FP) PO PRN (11:34)
[2017-12-12] MEDS ORDERED: ONDANSETRON *ODT* 4 MG TABLET SL PRN (11:35)
--- NOTE | 2017-12-12 11:42 | PN ---
S Progress Note Note: withdrawal symptom,vomiting Vital Signs Temperature 98.2 F 12/11/17 15:22 Pulse Rate 68 12/11/17 15:22 Respiratory Rate 18 12/12/17 03:30 Blood Pressure 124/76 12/11/17 15:22 O2 Sat by Pulse Oximetry (%) flexeril 10 mgs po tid prn clonidine 0.1 mg po bid to hold if systolic bp below 100 motrin 600 mgs po q 6hra prn for pain close monitoring
[2017-12-12] MEDS ORDERED: cloNIDine HCL 0.1 MG TABLET PO SCH (12:00)
[2017-12-12] MEDS ORDERED: TRIMETHOBENZAMIDE HCL 200MG/2ML INJ IM PRN (14:18)
--- NOTE | 2017-12-12 17:37 | PN ---
[facility] Progress Note Note: patient did not want to complete treatment,signed release ama,psychiatrist circulation clerk notified by nurse,signed release ama, Vital Signs Temperature 98.2 F 12/11/17 15:22 Pulse Rate 68 12/11/17 15:22 Respiratory Rate 18 12/12/17 03:30 Blood Pressure 124/76 12/11/17 15:22 O2 Sat by Pulse Oximetry (%)
== END 2017-12-12 17:13 | disposition left against medical advice (07) | DRG 770 ==
LOC: YASAS 10:33 → Y3W 12:20
PROVIDERS: ADMIT Psychiatry & Neurology Psychiatry; ATTEND Psychiatry & Neurology Psychiatry
PROC: HZ42ZZZ Group Counseling for Substance Abuse Treatment, Cognitive-Behavioral (ICD-10-PCS; principal; 2017-12-11)
DX: F11.20 Opioid dependence, uncomplicated (principal); F10.20 Alcohol dependence, uncomplicated; F14.20 Cocaine dependence, uncomplicated; F17.210 Nicotine dependence, cigarettes, uncomplicated; F31.9 Bipolar disorder, unspecified; R63.4 Abnormal weight loss; Z68.21 Body mass index [BMI] 21.0-21.9, adult; Z86.19 Personal history of other infectious and parasitic diseases
CPT/HCPCS: 36415; 80053; 82962; 85027; 86593; 87389; J0735; Q0162